=== PATIENT | male | born 1970 | race Caucasian/White ===

== ENCOUNTER 2018-03-05 18:09 | Emergency (ER) | payer OTHER ==
[~2018-03-05] VITALS: Ht 165.1 cm; Wt 66.8 kg
[~2018-03-05 18:09] MED LIST: NEXIUM10 MG PO
[2018-03-05 18:42] LABS: HEMOGLOBIN 15.4 G/DL (12.5-16.6); MCH 35.5 PG (29.0-34.0); MCHC 35.8 G/DL (30.0-36.0); MCV 99.1 FL (86-99); PLATELET COUNT 209 K/uL (156-360); RBC DIS.WIDTH-CV 12.2 % (11.8-14.6); RBC DIS.WIDTH-SD 44.8 % (39-53); RED BLOOD COUNT 4.34 M/uL (4.00-5.50); WHITE BLOOD COUNT 8.6 K/uL (4.1-10.2)
[2018-03-05 18:52] LABS: CHLORIDE 109 mEq/L (99-109); POTASSIUM 3.6 mEq/L (3.7-5.4); SODIUM 142 mEq/L (136-147)
[2018-03-05 18:54] LABS: GLUCOSE 89 mg/dL (70-99)
[2018-03-05 18:57] LABS: SERUM ETHYL ALCOHOL 42 mg/dL
[2018-03-05 18:58] LABS: GFR ESTIMATE (CALCULATED) > 59 mL/min/ (58.99-99999)
[2018-03-05 18:59] LABS: UREA NITROGEN (BUN) 8 mg/dL (9-23)
[2018-03-05 23:43] VITALS: BP 144/118
== END 2018-03-05 23:45 | disposition short-term general hospital (02) ==
LOC: EME 18:09 → CANRESERV 21:38 → ENRESERV 21:38 → EME 23:45
PROVIDERS: Emergency Medicine
DX: I63.231 Cerebral infarction due to unspecified occlusion or stenosis of right carotid arteries (principal); R29.810 Facial weakness; G81.94 Hemiplegia, unspecified affecting left nondominant side; R20.2 Paresthesia of skin; R29.700 NIHSS score 0; F10.20 Alcohol dependence, uncomplicated; F17.200 Nicotine dependence, unspecified, uncomplicated
CPT/HCPCS: 70450; 70496; 70498; 71045; 80048; 85027; 93005; 99281; 99284; G0480